=== PATIENT | male | born 1940 | race Caucasian/White ===

== ENCOUNTER 2017-02-27 08:50 | Outpatient (CLI) | payer MEDICARE, MEDICAID ==
[~2017-02-27] VITALS: Ht 175.3 cm; Wt 75.4 kg
--- NOTE | ~2017-02-27 | CATH ---
Cardiac Diagnostic Report Demographics Patient Name JUANY Montano Gender Male Date of 1940 Age 76 year(s) Patient Number [id number] Date of Study 02/27/2017 Visit Number [id number] Room Number G6399 [place] [id number] Ht 175.26 cm Wt 75.4 kg Referring Primary Physician Physician Maile Weinberg Secondary Physician Physician Yola MORRIS Diagnostic [place] Assisting Physician Physician Yola MORRIS Interventional Physician Well Head Pumper Physician Findings and Conclusions Diagnostic Findings and Conclusion Gradient across aortic valve is 25mmHg Vincent CO 5.25, Thermal 4.04 AVR 0.8cm2 and 0.4cm2/m2 Severe Moderate pulmonary hypertension, pressures in mid 40's LVEDP/PCWP 28 3 of 3 bypass grafts patent Diagnostic Recommendations TAVR consult Procedure Description The patient was brought to the diagnostic cardiac catheterization-EP laboratory in the fasting, non-sedated state. Informed consent was obtained in the written and verbal form after the risks and benefits were explained. The patient had no further questions and agreed to proceed. The planned puncture-incision site(s) were shaved and prepped with ChloraPrep and draped in the usual sterile manner. Conscious sedation, supplemental oxygen, and pain control medications were delivered by a registered nurse under physician guidance. Surface ECG rhythm, blood pressure measurement, and pulse oximetry were monitored throughout the procedure. Arterial access. The access site was infiltrated with lidocaine. The vessel was entered with the Seldinger technique. A sheath was advanced into the vessel and used for catheter placement. Left heart catheterization. A catheter was advanced across the aortic valve to the left ventricle under fluoroscopic guidance. Resting hemodynamics were obtained. Selective right coronary angiography. A catheter was advanced into the right coronary vessel ostium under fluoroscopic guidance. Contrast was injected by hand. Images were obtained in multiple projections. Selective SVG angiography. A catheter was advanced into the graft proximal anastomosis under fluoroscopic guidance. Contrast was injected by hand. Images were obtained in multiple projections. Selective BONDS graft angiography. A catheter was advanced into the left internal mammary graft ostium under fluoroscopic guidance. Contrast was injected by hand. Images were obtained in multiple projections. Selective left coronary angiography. A catheter was advanced into the left coronary vessel ostium under Fluoroscopic guidance. Contrast was injected by hand. Images were obtained in multiple projections. Venous access. The access site was infiltrated with lidocaine. The vessel was entered with the Seldinger technique. A sheath was advanced into the vessel and used for catheter placement. Right heart catheterization. A [place] Neela catheter was successfully advanced to the right atrium, right ventricle, pulmonary artery, and pulmonary artery wedge position under fluoroscopic guidance. Resting hemodynamics were obtained. Measurements included pressures, arterial and venous oxygen saturations and calculating cardiac output. Arterial and venous hemostasis. Hemostasis was achieved. The patient was transferred to a regular nursing floor via cart accompanied by a nurse. The patient left the laboratory in stable condition. Diagnostic Cath Status: Elective Procedure Procedure Type Diagnostic procedure:Angiography:, Coronary Angios, RHC/LHC w/Grafts Indications: Aortic valve disease and Shortness of breath. The procedure was explained in detail to the patient. Risks, complications and alternative treatments were reviewed. Written consent was obtained. Medications Reviewed with Patient prior to Procedure. Angiographic Findings Dominance: Right Cardiac Arteries and Lesion Findings LMCA: Lesion on LMCA: Distal subsection.40% stenosis . Comments:Tapers LAD: Mild diffuse disease. Distal competitive flow noted Lesion on Prox LAD: Mid subsection.70% stenosis . LCx: Normal (0% Stenosis).Moderate diffuse disease. OM1, OM2, and OM3 are small. Deering OM has moderate diffuse disease RCA: Deering RCA has moderate diffuse disease Lesion on Prox RCA: Ostial.100% stenosis .Chronic total occlusion. Cardiac Grafts - There is a BONDS graft that originates at the BONDS and attaches to the Dist LAD (Patent). - There is a Vein graft that originates at the Aorta Left and attaches to the 1st Ob Arabella (Patent). - There is a Vein graft that originates at the Aorta Right and attaches to the Dist RCA (Patent). Coronary Tree Procedure Data Procedure Date Date: 02/27/2017Start: 11:25 AMEnd: 12:25 PM Entry Locations - Retrograde Percutaneous access was performed through the Right Femoral artery (Primary location). A 7 Fr sheath was inserted. Hemostasis was successfully obtained using Perclose ProGlide (Manzo). Closure Comments: Deployed by Rachel GRIMALDO(Nayeli). - Antegrade Percutaneous access was performed through the Right Femoral vein. A 7 Fr sheath was inserted. Hemostasis was successfully obtained using Manual Compression. Closure Comments: Manual pressure held by Rachel MCLAUGHLIN). Procedure Medications Order and Administration + + + + + !Time !Medication !Dosage !Route ! + + + + + !02/27/2017 11:25 AM !Versed !1 mg !I.V. ! + + + + + !02/27/2017 11:25 AM !Fentanyl !25 mcg !I.V. ! + + + + + !02/27/2017 12:15 PM !0.9% NaCl !70 ml/hr !I.V. drip ! + + + + + Devices Used - A6 Fr. BS JR 4 Diag. Catheterwas used for:Right coronary angiography. Comments: , LV Pressures, SVG-RCA, and SVG-OM. - A6 Fr. BS IMT Diag. Catheterwas used for:BONDS. - A6 Fr. BS JL 4 Diag. Catheterwas used for:Left coronary angiography. Contrast Material - Isovue 24095 ml Fluoroscopy Time: Diagnostic: 11:42 minutes. Total: 11:42 minutes. Fluoroscopy Dose: Diagnostic: 816 mGy. Total: 816 mGy. Estimated Blood Loss: 10 ml. Medical History Performed Procedures and Imaging Results - No ACC stress or imaging studies were performed. Allergies - Penicillin. - Cephalosporines. - Other:(Quinolones, Cephalexin, Levofloxacin, Albuterol, Beta Lactam). 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 Admission Data Admission Date: 02/27/2017 Admission Time: 08:50 AM Admit Source: Other Insurance Payors: Medicare. Admission Medications + +------+------+ + + + + !Medication !Dosage!Times !Last !Last !Administered !Comments ! ! ! !Per !Delivery !Delivery ! ! ! ! ! !Day !Date !Time ! ! ! + +------+------+ + + + + !Aspirin ! ! ! ! !Yes ! ! !(any) ! ! ! ! ! ! ! + +------+------+ + + + + !Statin ! ! ! ! !Yes ! ! !(any) ! ! ! ! ! ! ! + +------+------+ + + + + !Beta ! ! ! ! !Yes ! ! !Jacques ! ! ! ! ! ! ! !(any) ! ! ! ! ! ! ! + +------+------+ + + + + !ARB (any) ! ! ! ! !Yes ! ! + +------+------+ + + + + Clinical Evaluation Leading to Procedure - There were no CAD presentation symptoms. - There were no anginal symptoms. Anti-anginal medications were prescribed during the past two weeks. The medication is: Beta Blockers. - The patient has been in a state of heart failure within the past two weeks. Hemodynamics Condition: Rest O2 Consumption: Estimated: 211.63Heart Rate: 59 bpm Oxygen Saturation +--------+-----+----+ +---+ + !Location!pCO2 !pO2 !% Saturation !Hgb!O2 Content ! +--------+-----+----+ +---+ + !PA ! ! !50.5 !7.9! ! +--------+-----+----+ +---+ + !FA ! ! !86 !7.9! ! +--------+-----+----+ +---+ + Pressures (mmHg) +-----+ + !Site !Pressure ! +-----+ + !LV !174/- ! +-----+ + !LV !173/- ! +-----+ + !AO !148/30 (65) ! +-----+ + !LV !173/- ! +-----+ + !AO !142/30 (66) ! +-----+ + !RA !8/7 (5) ! +-----+ + !RV !46/0 ,9 ! +-----+ + !PCW ! (22) ! +-----+ + !PA !45/ (29) ! +-----+ + Cardiac Output + + +------+ !Time !Cardiac Output (l/min) !Use ! + + +------+ !02/27/2017 12:00 PM !4.06 !True ! + + +------+ !02/27/2017 12:00 PM !3.82 !False ! + + +------+ !02/27/2017 12:01 PM !4.11 !True ! + + +------+ !02/27/2017 12:01 PM !3.95 !True ! + + +------+ !02/27/2017 12:02 PM !4.4 !False ! + + +------+ Cardiac Output +-------+ + + + !Method !CO (l/min) !CI (l/min/m2) !SV (ml) ! +-------+ + + + !Vincent !5.55 !2.9 !93.39 ! +-------+ + + + !Thermal!4.04 !2.1 !68.86 ! +-------+ + + + Valve Gradients and Areas + +--------+--------+--------+---------+ + + !Valve !Peak !Mean !Area !Index !Flow !Source ! + +--------+--------+--------+---------+ + + !Aortic !25 !33 !0.9 !0.47 !228.68 !Vincent ! + +--------+--------+--------+---------+ + + !Aortic !25 !33 !0.65 !0.34 !166.46 !Thermal ! + +--------+--------+--------+---------+ + + Shunts Oxygen Values O2 Capacity 107.44 O2 Consumption 211.63 Flows (l/min) Qs 5.55 Vascular Resistance (dynes x sec x cm-5) + +-----+-----+----+----+---------+-------+ !CO method !TSVR !SVR !TPVR!PVR !TPVR/TSVR!PVR/SVR! + +-----+-----+----+----+---------+-------+ !Vincent !11.84!10.97!5.17!1.18!0.44 !0.11 ! + +-----+-----+----+----+---------+-------+ !Thermal !16.27!15.08!7.1 !1.62!0.44 !0.11 ! + +-----+-----+----+----+---------+-------+ !Qp or Qs !11.84!10.97! ! ! ! ! + +-----+-----+----+----+---------+-------+ Discharge Data Discharge Date: 02/27/2017 Hospital Status: Outpatient Signatures dtt: Yola Weinberg dtd: 02/27/17 1125 Physician Self Edit
[~2017-02-27 08:50] MED LIST: ALDACTONE25 MG PO; ASPIRIN LO-DOSE81 MG PO; ATROVENT HFA12.9 G1 INH; CLARITIN10 MG PO; COREG6.25 MG PO; COZAAR100 MG PO; LANOXIN (DIGI125 MCG PO; LASIX40 MG PO; LIPITOR40 MG PO; NITROSTAT0.4 MG SL; OXYGEN M-15 NOSE; PROTONIX40 MG PO; RANITIDINE HCL300 MG PO; REGLAN10 MG PO
[2017-03-10] MEDS ORDERED: CLARITIN10 MG PO (16:09)
[2017-03-12] MEDS ORDERED: NORCO 5-325 TA1 EACH PO (14:22)
[2017-03-12] MEDS ORDERED: PERIDEX15 ML PO (14:23)
== END 2017-02-27 16:15 | disposition disaster alternative care site (69) ==
LOC: GCAT 08:50 → GPCU 08:50 → GPOC 09:00 → GCAT 16:15
PROC: 4A023N8 Measurement of Cardiac Sampling and Pressure, Bilateral, Percutaneous Approach (ICD-10-PCS; principal; 2017-02-27)
PROC: B2131ZZ Fluoroscopy of Multiple Coronary Artery Bypass Grafts using Low Osmolar Contrast (ICD-10-PCS; 2017-02-27)
PROC: B2111ZZ Fluoroscopy of Multiple Coronary Arteries using Low Osmolar Contrast (ICD-10-PCS; 2017-02-27)
PROC: B2181ZZ Fluoroscopy of Left Internal Mammary Bypass Graft using Low Osmolar Contrast (ICD-10-PCS; 2017-02-27)
DX: I35.0 Nonrheumatic aortic (valve) stenosis (principal); I27.2 Other secondary pulmonary hypertension; I25.10 Atherosclerotic heart disease of native coronary artery without angina pectoris; I25.82 Chronic total occlusion of coronary artery; Z95.1 Presence of aortocoronary bypass graft; I25.2 Old myocardial infarction; E78.5 Hyperlipidemia, unspecified; Z82.49 Family history of ischemic heart disease and other diseases of the circulatory system
CPT/HCPCS: C1760; J1644; J2001; J2250; J3010; J7030; J7060

== ENCOUNTER → 2017-03-12 | Day surgery (SDC) | payer MEDICARE, MEDICAID ==
[~2017-03-12] VITALS: Ht 175.3 cm; Wt 77.2 kg
[~2017-03-12] MED LIST changes: +NORCO 5-325 TA1 EACH PO; +PERIDEX15 ML PO
--- NOTE | ~2017-03-12 | OR ---
PATIENT'S NAME: DISHA HARRINGTON [facility] AGE: 76 Y [address] ROOM: [place] [address] [place] [facility] [place] DATE: 03/12/2017 OR/Procedure Report DISCHARGE DATE: FAMILY PHYSICIAN: Scott Montanez MD ATTENDING PHYSICIAN: Froy Johnson SURGEON: Froy Johnson MD/DAWN TANK ERECTOR: DATE OF PROCEDURE: 03/12/2017 PREOPERATIVE DIAGNOSIS: Nonrestorable dentition. POSTOPERATIVE DIAGNOSIS: Nonrestorable dentition. PROCEDURE: Removal of all remaining teeth. BLOOD LOSS: Minimal. OPERATIVE SUMMARY: After adequate IV induction and orotracheal intubation, the patient was prepped and draped in the usual manner for an intraoral procedure. He did receive 900 mg of Cleocin IV preoperatively. We gave him local anesthetic in the upper and lower arches and developed a full-thickness mucoperiosteal flap on the facial surface of the maxillary and mandibular alveolar ridges. Teeth numbers 6, 7, 9, 10, 11, 15, 28, 29, 27, 26, 25, 24, 23, 22, 21, and 30 were removed with forceps and elevators without difficulty. Excess bony prominences were smooth using rongeurs. Excess soft tissue was sharply excised. We did intentionally not remove the sizable mandibular juan. This patient is scheduled for extensive heart surgery in less than a week and I felt that the juan would add quite a bit to his recovery time. The areas were irrigated with sterile saline and closed with running interlocking 3-0 chromic suture. The patient was taken to the recovery room in stable condition. FROY JOHNSON MD/DAWN MGT/modl /[id number] d: t: 03/13/17 1017, OPERATIVE SUMMARY
[2017-03-12 13:14] LABS: PCO2 48 mmHg (35-45)
[2017-03-12 13:15] LABS: BICARBONATE 28.9 mmol/L (18.0-23.0); PO2 42 mmHg (80-90); POTASSIUM 4.3 mEq/L (3.7-5.1); SODIUM 139 mEq/L (135-145)
== END | disposition disaster alternative care site (69) ==
LOC: GSDC 03-11 15:00 → GPOC 03-11 15:00 → GSDC 11:03
PROVIDERS: Nurse Anesthetist, Certified Registered
PROC: 0CDXXZ1 Extraction of Lower Tooth, Multiple, External Approach (ICD-10-PCS; principal; 2017-03-12)
PROC: 0CDWXZ1 Extraction of Upper Tooth, Multiple, External Approach (ICD-10-PCS; 2017-03-12)
DX: K00.7 Teething syndrome (principal); I25.810 Atherosclerosis of coronary artery bypass graft(s) without angina pectoris; I48.0 Paroxysmal atrial fibrillation; I08.0 Rheumatic disorders of both mitral and aortic valves; D50.9 Iron deficiency anemia, unspecified; I13.0 Hypertensive heart and chronic kidney disease with heart failure and stage 1 through stage 4 chronic kidney disease, or unspecified chronic kidney disease; N18.9 Chronic kidney disease, unspecified; I50.30 Unspecified diastolic (congestive) heart failure; J44.9 Chronic obstructive pulmonary disease, unspecified; E78.00 Pure hypercholesterolemia, unspecified; Z87.891 Personal history of nicotine dependence; Z90.49 Acquired absence of other specified parts of digestive tract; Z98.890 Other specified postprocedural states; Z88.1 Allergy status to other antibiotic agents; Z88.0 Allergy status to penicillin; Z88.8 Allergy status to other drugs, medicaments and biological substances
CPT/HCPCS: J7030